=== PATIENT | female | born 1945 | race Caucasian/White ===

== ENCOUNTER 2016-07-01 12:38 | Emergency (ER) | payer MEDICARE, OTHER ==
[~2016-07-01] VITALS: Ht 165.1 cm; Wt 78.0 kg
[2016-07-01] MEDS ORDERED: TOPROL XL25 MG PO (13:01)
[2016-07-01] MEDS ORDERED: ASPIRIN81 MG PO (13:02)
[2016-07-01] MEDS ORDERED: NORVASC2.5 MG PO (13:02)
[2016-07-01] MEDS ORDERED: LIPITOR80 MG PO (13:02)
== END 2016-07-01 13:25 | disposition short-term general hospital (02) ==
LOC: ER 12:38
DX: L03.114 Cellulitis of left upper limb (principal); W45.8XXA Other foreign body or object entering through skin, initial encounter; Z88.6 Allergy status to analgesic agent; Z88.8 Allergy status to other drugs, medicaments and biological substances

== ENCOUNTER → 2016-07-20 | Outpatient (CLI) | payer MEDICARE, OTHER ==
[~2016-07-20] MED LIST: ASPIRIN81 MG PO; LIPITOR80 MG PO; NORVASC2.5 MG PO; TOPROL XL25 MG PO
== END | disposition short-term general hospital (02) ==
LOC: CLCARD 02:54
DX: I25.10 Atherosclerotic heart disease of native coronary artery without angina pectoris (principal); I10 Essential (primary) hypertension; E78.5 Hyperlipidemia, unspecified; Z85.3 Personal history of malignant neoplasm of breast; Z95.5 Presence of coronary angioplasty implant and graft